=== PATIENT | female | born 1970 | race Caucasian/White ===

== ENCOUNTER 2020-11-28 21:21 | Emergency (ER) | payer MEDICAID ==
[~2020-11-28] VITALS: Ht 160 cm; Wt 57.5 kg
[2020-11-28 22:31] VITALS: BP 119/73
== END 2020-11-28 22:35 | disposition home or self-care (01) ==
LOC: ER 21:22
DX: R44.0 Auditory hallucinations (principal); Z76.0 Encounter for issue of repeat prescription; F17.200 Nicotine dependence, unspecified, uncomplicated; Z59.0 Homelessness; Z88.0 Allergy status to penicillin
CPT/HCPCS: 99281

== ENCOUNTER 2020-12-19 22:33 | Emergency (ER) | payer MEDICAID ==
[~2020-12-19] VITALS: Ht 160 cm; Wt 55.5 kg
[2020-12-19 22:35] VITALS: BP 146/81
--- NOTE | 2020-12-19 23:31 | NUR ---
pt verbalized need for overnight stay while traveling to another area
== END 2020-12-19 23:24 | disposition home or self-care (01) ==
LOC: ER 22:34
DX: Z59.0 Homelessness (principal); R11.0 Nausea; R53.83 Other fatigue; R45.851 Suicidal ideations; Z88.0 Allergy status to penicillin; F20.9 Schizophrenia, unspecified; F17.210 Nicotine dependence, cigarettes, uncomplicated; Z72.89 Other problems related to lifestyle; F15.90 Other stimulant use, unspecified, uncomplicated; Z91.5 Personal history of self-harm; Z73.3 Stress, not elsewhere classified
CPT/HCPCS: 99281

== ENCOUNTER 2021-01-06 00:36 | Emergency (ER) | payer MEDICAID ==
[~2021-01-06] VITALS: Ht 160 cm; Wt 68.2 kg
[2021-01-06 00:37] VITALS: BP 142/94
[2021-01-06] MEDS ORDERED: clonazePAM 1mg tablet PO ONE (01:05)
== END 2021-01-06 02:03 | disposition home or self-care (01) ==
LOC: ER 00:36
DX: F15.10 Other stimulant abuse, uncomplicated (principal); F20.9 Schizophrenia, unspecified; Z59.0 Homelessness; Z88.0 Allergy status to penicillin; Z91.19 Patient's noncompliance with other medical treatment and regimen
CPT/HCPCS: 99283

== ENCOUNTER 2021-01-14 16:59 | Emergency (ER) | payer MEDICAID ==
[~2021-01-14] VITALS: Ht 160 cm; Wt 68.2 kg
[2021-01-14] MEDS ORDERED: clonazePAM 1mg tablet PO ONE (17:35)
--- NOTE | 2021-01-14 17:56 | NUR ---
PT IS IN ROOM WRITING ON A CLIP BOARD. AT TIMES SHE SHOUTS OUT YELLING AT HER HALLUCINATIONS. PT DOES NOT HAVE TO PEE AT THIS TIME.
--- NOTE | 2021-01-14 19:00 | NUR ---
The patient moved to bed 23 from triage. She appears extremely disheveled and unkempt. She initially presented to Triage as a walkin in with soaking wet clothes and demanding dry clothes. She presents and confused and poorly oriented. She does admit to previous psychiatric hospitalizations but unable to elaborate at this time. She is distracted by internal stimuli and interrupts the evening assessment to yell at the ceiling. She stated "I have a rolling CD in my head that's coming from the jails or the floors. She is wanting the president of the [place] to be contacted about her relatives being held against their will. She reports she is currently homeless and stated that she has been homeless most of her life. This is her 5th ER contact for homelessness issues. She was given a urine speciman cup and she agrees to give a urine sample when able.
[2021-01-14 19:16] LABS: BASOPHILS # (AUTO) 0.1 X10'3 (0-0.2); BASOPHILS % (AUTO) 0.6 % (0-1); EOSINOPHILS # (AUTO) 0.1 X10'3 (0-0.9); EOSINOPHILS % (AUTO) 0.8 % (0-6); HEMATOCRIT 38.3 % (35.0-45.0); HEMOGLOBIN 12.6 g/dl (12.0-16.0); LYMPHOCYTES # (AUTO) 2.8 X10'3 (1.1-4.8); LYMPHOCYTES % (AUTO) 23.4 % (21-51); MEAN CORPUSCULAR HEMOGLOBIN 29.6 PG (27.0-31.0); MEAN CORPUSCULAR HGB CONC 32.9 g/dL (33.0-36.5); MEAN CORPUSCULAR VOLUME 89.8 FL (78-98); MEAN PLATELET VOLUME 7.4 FL (7.4-10.4); MONOCYTES # (AUTO) 0.7 X10'3 (0-0.9); MONOCYTES % (AUTO) 6.2 % (2-12); NEUTROPHILS # (AUTO) 8.1 X10'3 (1.8-7.7); PLATELET COUNT 328 X10'3 (140-440); RED BLOOD COUNT 4.26 X10'6 (4.20-5.60); RED CELL DISTRIBUTION WIDTH 14.7 % (11.5-14.5); WHITE BLOOD COUNT 11.8 X10'3 (4.5-11.0)
[2021-01-14 19:21] LABS: ALANINE AMINOTRANSFERASE 23 U/L (12-78); ALBUMIN 3.7 G/DL (3.4-5.0); ALBUMIN/GLOBULIN RATIO 1.2 (1.1-1.5); ALKALINE PHOSPHATASE 58 IU/L (46-116); ANION GAP 9 (8-16); ASPARTATE AMINO TRANSFERASE 14 U/L (10-37); BILIRUBIN,TOTAL 0.5 MG/DL (0.1-1.0); BLOOD UREA NITROGEN 26 MG/DL (7-18); BUN/CREATININE RATIO 28.9 (6.6-38.0); CALCIUM 9.4 MG/DL (8.5-10.1); CHLORIDE 109 MMOL/L (99-107); ETHANOL < 0.010 GM/DL (0.0-0.010); GLUCOSE 104 MG/DL (70-104); POTASSIUM 4.1 MMOL/L (3.5-5.1); SODIUM 145 MMOL/L (135-145); TOTAL CARBON DIOXIDE 26.8 MMOL/L (24-32); TOTAL PROTEIN 6.9 G/DL (6.4-8.2); eGFR 66 ML/MIN
--- NOTE | 2021-01-14 19:22 | NUR ---
The patient ate 100% of her evening meal and took po Klonopin.
[2021-01-14 20:23] LABS: URINE HCG NEGATIVE (NEG)
--- NOTE | 2021-01-14 20:24 | NUR ---
The patient up to the bathroom and gave a urine sample. She appears to be back asleep at this time.
[2021-01-14] MEDS ORDERED: NO HOME MEDS (20:25)
[2021-01-14 20:27] LABS: CLARITY,URINE CLOUDY (Clear); COLOR,URINE YELLOW (Yellow); GLUCOSE, URINE NEGATIVE (Neg); KETONES,URINE TRACE mg/dl (Neg); LEUKOCYTE ESTERASE ,URINE NEGATIVE (Neg); NITRITES, URINE NEGATIVE (Neg); OCCULT BLOOD,URINE NEGATIVE (Neg); PH,URINE 7.5 (4.8-8.0); PROTEIN,URINE NEGATIVE (Neg)
[2021-01-14 20:36] LABS: URINE AMPHETAMINE SCREEN NEGATIVE (Neg); URINE BARBITUATE SCREEN NEGATIVE (Neg); URINE BENZODIAZEPINES SCREEN NEGATIVE (Neg); URINE CANNABINOID SCREEN NEGATIVE (Neg); URINE COCAINE SCREEN NEGATIVE (Neg); URINE METHADONE SCREEN NEGATIVE (Neg); URINE OPIATE SCREEN NEGATIVE (Neg); URINE PHENCYCLIDINE SCREEN NEGATIVE (Neg)
[2021-01-14 20:38] LABS: UA COLLECTION TYPE VOIDED
[2021-01-14 20:48] LABS: AMORPHOUS URATES 4+; BACTERIA,URINE FEW /HPF (Neg); RBC,URINE NONE SEEN /HPF (0-2); SQUAMOUS EPITHELIAL CELL,UR FEW /LPF (FEW); WBC,URINE NONE SEEN /HPF (0-4)
--- NOTE | 2021-01-14 21:10 | NUR ---
packet sent to [facility]
--- NOTE | 2021-01-15 00:08 | NUR ---
The patient appears to be sleeping on her bed.
--- NOTE | 2021-01-15 01:30 | NUR ---
The patient appears to be sleeping
--- NOTE | 2021-01-15 03:59 | NUR ---
The patient appears to be sleeping
--- NOTE | 2021-01-15 05:25 | NUR ---
The patient appears to be sleeping
--- NOTE | 2021-01-15 06:47 | NUR ---
PT RESTING EYES CLOSED RR EQUAL AND UNLABORED
--- NOTE | 2021-01-15 08:06 | NUR ---
PT RESTING ON LEFT SIDE RR EQUAL AND UNLABORED
--- NOTE | 2021-01-15 08:43 | NUR ---
PT AWAKE AND EATING BREAKFAST. PT ALERT STATING SHE FEELS BETTER AFTER SLEEPING. PT MORE ALERT.
--- NOTE | 2021-01-15 10:32 | NUR ---
PT SITTING IN BED WRITTING ON PAPER. PT STATES SHE IS READY TO BE RELEASED. GAB FROM [facility] INFORMED PT SHE WILL SEE HER WHEN SHE IS ABLE. TO STATES VERBAL UNDERSTANDING.
--- NOTE | 2021-01-15 11:15 | NUR ---
PER [facility] PT IS BEING PLACED ON 5150. WILL NOTIFY PRIMARY RN GAGAN UPON HER RETURN FROM BREAK.
--- NOTE | 2021-01-15 11:31 | NUR ---
DISCUSSED PT'S CONTINUED RESPONSE TO INTERNAL STIMULI AEB HER CALLING OUT WHEN NONE PRESENT INCLUDING ARGUING WHILE POINTING @ THE WALL. PT'S BEHAVIOR IS HAVING A NEGATIVE EFFECT ON OTHERS IN AN AREA WHERE CURTAINS ARE THE ONLY MEANS OF PRIVACY. NEW ORDER FOR ORESTES RECEIVED.
[2021-01-15] MEDS ORDERED: ziprasidone 20mg capsule PO SCH (11:35)
--- NOTE | 2021-01-15 12:11 | NUR ---
[facility] REQUESTING COVID TEST FOR POSSIBLE PLACEMENT. RN AWARE.
--- NOTE | 2021-01-15 12:56 | NUR ---
PT SITTING ON SIDE OF BED EATING LUNCH NO NEEDS AT THIS TIME
--- NOTE | 2021-01-15 15:15 | NUR ---
PT RESTING WITH EYES CLOSED RR EQUAL AND UNLABORED.
--- NOTE | 2021-01-15 16:43 | NUR ---
PT RESTING ON RIGHT SIDE RR EQUAL AND UNLABORED
--- NOTE | 2021-01-15 16:51 | NUR ---
[facility] OFFICE CALLED PT ACCEPTED AT [facility] CHEMICAL RESEARCH WORKER TIME [id number]
[2021-01-15 17:11] VITALS: BP 108/76
== END 2021-01-15 18:54 ==
LOC: ER 16:59
DX: F79 Unspecified intellectual disabilities (principal); Z20.822 Contact with and (suspected) exposure to COVID-19; R45.851 Suicidal ideations; F20.9 Schizophrenia, unspecified; R06.02 Shortness of breath; F15.90 Other stimulant use, unspecified, uncomplicated; Z59.0 Homelessness; Z88.0 Allergy status to penicillin
CPT/HCPCS: 36415; 80053; 80305; 80320; 81001; 81025; 84443; 85025; 87426; 99285